=== PATIENT | female | born 1995 | race American Indian/Alaskan Native ===

== ENCOUNTER 2019-05-14 21:48 | Outpatient (CLI) | payer BC, MEDICAID ==
[2019-05-14 23:47] VITALS: BP 129/65
== END 2019-05-14 23:55 | disposition home or self-care (01) ==
LOC: TRG 21:48
PROVIDERS: ATTEND Obstetrics & Gynecology
DX: O47.1 False labor at or after 37 completed weeks of gestation (principal); Z3A.39 39 weeks gestation of pregnancy
CPT/HCPCS: 59025

== ENCOUNTER 2019-05-18 01:41 | Inpatient (IN) | payer BC, MEDICAID ==
[2019-05-18] MEDS ORDERED: XYLOCAINE 2% INFILTRATI ONE (02:13)
[2019-05-18] MEDS ORDERED: BRETHINE IVP PRN (02:13)
[2019-05-18] MEDS ORDERED: MINERAL OIL PO PRN (02:13)
[2019-05-18] MEDS ORDERED: BRETHINE SUB-Q PRN (02:13)
[2019-05-18] MEDS ORDERED: AMPICILLIN/NS 2 GM/100 ML 2 GM/100 ML BAG IV ONE (02:13)
[2019-05-18] MEDS ORDERED: SUBLIMAZE IV PRN (02:13)
[2019-05-18 02:40] LABS: Hemoglobin 12.1 gm/dl (10.1-14.3); Mean Corpuscular HGB Conc 34 % (30-34); Mean Corpuscular Volume 81 fl (79-97); Platelet Count 164 K/mm3 (140-440); Red Blood Count 4.47 M/mm3 (3.65-5.03); Red Cell Distribution Width 16.8 % (13.2-15.2)
[2019-05-18] MEDS ORDERED: PITOCin/NS 20 UNIT/1000ML DRIP 20 UNITS/1,000 ML BAG IV SCH (03:00)
[2019-05-18] MEDS ORDERED: LACTATED RINGERS 1,000 ML IV SCH (03:00)
[2019-05-18] MEDS ORDERED: NARCAN 2 MG/2 ML IV PRN (03:05)
--- NOTE | 2019-05-18 03:06 | Anesthesia Day of Surgery ---
Anesthesia Day of Surgery - Day of Surgery Patient Examined: Yes Patient H&P Reviewed: Yes Patient is NPO: Yes Beta Blockers: No Cardiac Clearance: No Pulmonary Clearance: No Greg's Test: N/A
--- NOTE | 2019-05-18 03:06 | Anesthesia Consultation ---
Anesthesia Consult and Med Hx - Airway Anesthetic Teeth Evaluation: Good ROM Head & Neck: Adequate Mental/Hyoid Distance: Adequate Mallampati Class: Class I Intubation Access Assessment: Good - Pulmonary Exam CTA: Yes - Cardiac Exam Cardiac Exam: RRR - Pre-Operative Health Status ASA Pre-Surgery Classification: ASA2 Proposed Anesthetic Plan: Epidural - Pulmonary Hx Asthma: No COPD: No Hx Pneumonia: No - Cardiovascular System Hx Hypertension: No - Central Nervous System Hx Seizures: No Hx Psychiatric Problems: No - Endocrine Hx Renal Disease: No Hx End Stage Renal Disease: No Hx Hypothyroidism: No Hx Hyperthyroidism: No - Hematic Hx Anemia: Yes (takes iron tid) Hx Sickle Cell Disease: Yes (trait) - Other Systems Hx Alcohol Use: No
--- NOTE | 2019-05-18 03:11 | History and Physical Report ---
History of Present Illness Date of examination: 05/18/19 Date of admission: 05/18/19 02:17 Chief complaint: labor History of present illness: Menstrual History Regularity: regular Menses every: 28 days Duration: 7 LMP: 08/08/2018 LMP reliability: definite LMP character: normal test type: urine test Date: 02/09/2019 BC at conception: BCP Planned ? no EDC Calculations LMP: 05/15/2019 EDC Confirmation: 05/15/2019 Gestational Age: 26 3/7 weeks Past History : 1 Term Births: 0 Premature Births: 0 Living Children: 0 Para: 0 Mult. Births: 0 Prev : 0 Prev. attempt? 0 Aborta: 0 Elect. Ab: 0 Spont. Ab: 0 Ectopics: 0 Past Medical History: Negative Past Medical History Past Surgical History: negative Past Medical History Anesthesia Complications: negative Anemia: negative Autoimmune Disorder: negative Bleeding Disorder: negative Blood Transfusions: negative Breast Disease: negative Diabetes: negative Heart Disease: negative Hypertension: negative Hepatitis/Liver Disease: negative Kidney Disease/UTI: negative Neurologic/Epilepsy/Migraines: negative Phlebitis/Varicosities: negative Psychiatric: negative Pulmonary Disease/Asthma: negative Thyroid Disease: negative Hospitalizations: negative 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 of genital herpes: no Partner hx. of genital herpes: no Rash, Viral, or Febrile illness since last LMP? no Varicella/Chicken Pox Status: Immunized Genetic History Congenital Heart Defect: Mom: no Dad: no Kee Disease: Mom: no Dad: no Thalassemia Mom: no Dad: no Neural Tube Defect Mom: no Dad: no Down's Syndrome Mom: no Dad: no Segundo-Sachs Mom: no Dad: no Sickle Cell Disease/Trait Mom: yes Dad: no Comments: pt's mother Hemophilia Mom: no Dad: no Muscular Dystrophy Mom: no Dad: no Cystic Fibrosis Mom: no Dad: no Mathews Chorea Mom: no Dad: no Mental Retardation Mom: no Dad: no Fragile X Mom: no Dad: no Other Genetic/Chromosomal Disorder Mom: no Dad: no Child w/other defect Mom: no Dad: no Enviromental Exposures Xray Exposure: no Medication, drug, or alcohol use since LMP: no Chemical/Other Exposure: no Exposure to Cat Liter: no Hx of Parvovirus (Fifth Disease): no Occupational Exposure to Children: none Current Allergies: No known allergies Past History Past Medical History: other (see HPI) Past Surgical History: other (see HPI) 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 (see HPI) Family/Genetic History: other (see HPI) Social history: other (see HPI) - Obstetrical History Expected Date of Delivery: 05/15/19 Actual Gestation: 40 Week(s) 3 Day(s) : 1 Para: 0 Medications and Allergies Allergies Allergy/AdvReac Type Severity Reaction Status Date / Time No Known Allergies Allergy Verified 05/14/19 22:08 Home Medications Medication Instructions Recorded Confirmed Last Taken Type Vit-Fe Fumar-FA [ 1 tab PO DAILY 05/14/19 05/18/19 05/17/19 History Vitamin] Ferrous Sulfate [Iron 325 MG] 325 mg PO TID 05/18/19 05/18/19 05/17/19 History Active Meds: Active Medications Ephedrine Sulfate (Ephedrine Sulfate) 10 mg IV Q2M PRN PRN Reason: Hypotension Ephedrine Sulfate (Ephedrine Sulfate) 10 mg IV Q2M PRN PRN Reason: Hypotension Fentanyl (Sublimaze) 100 mcg IV Q2H PRN PRN Reason: Labor Pain Oxytocin/Sodium Chloride (Pitocin/Ns 20 Unit/1000ml Drip) 20 units in 1,000 mls @ 125 mls/hr IV DIRECT CARRIE Lactated Ringer's (Lactated Ringers) 1,000 mls @ 125 mls/hr IV DIRECT CARRIE Last Admin: 05/18/19 02:51 Dose: 125 mls/hr Documented by: Ampicillin Sodium (Ampicillin/Ns 2 Gm/100 Ml) 2 gm in 100 mls @ 100 mls/hr IV ONCE ONE; Protocol Stop: 05/18/19 03:12 Last Admin: 05/18/19 02:50 Dose: 100 mls/hr Documented by: Ampicillin Sodium (Ampicillin/Ns 1 Gm/50 Ml) 1 gm in 50 mls @ 100 mls/hr IV Q4HR CARRIE; Protocol Fentanyl/Bupivacaine/Sodium Chlor (Fentanyl-Bupiv 2 Mcg/Ml-0.125%) 200 mcg in 100 mls @ 12 mls/hr EPIDURAL TITR CARRIE; Protocol Mineral Oil (Mineral Oil) 30 ml PO QHS PRN PRN Reason: Constipation Naloxone HCl (Narcan 2 Mg/2 Ml) 0.2 mg IV Q5M PRN PRN Reason: Respiratory sedation Terbutaline Sulfate (Brethine) 0.25 mg SUB-Q ONCE PRN PRN Reason: Hyperstimulation/Hypertonicity Terbutaline Sulfate (Brethine) 0.25 mg IVP ONCE PRN PRN Reason: Hyperstimulation/Hypertonicity Review of Systems All systems: negative Genitourinary: contractions - Vital Signs Vital signs: Vital Signs Pulse Resp BP 108 H 20 137/79 05/18/19 02:03 05/18/19 02:03 05/18/19 02:03 Temp Pulse Resp BP Pulse Ox 117 H 20 153/70 99 05/18/19 03:04 05/18/19 02:03 05/18/19 03:02 05/18/19 03:04 - Physical Exam Breasts: Positive: normal Cardiovascular: Regular rate, Normal S1, Normal S2 Abdomen: Positive: normal appearance, soft, normal bowel sounds. Negative: distention, tenderness Genitourinary (Female): Positive: normal external genitalia, normal perenium Vulva: both: normal Vagina: Positive: normal moisture. Negative: discharge Cervix: Negative: lesion, discharge Uterus: Positive: normal size, normal contour Adnexa: both: normal Anus/Rectum: Positive: normal perianal skin, heme negative. Negative: rectal mass, hemorrhoids Extremities: Deep Tendon Reflex Grade: Normal +2 - Obstetrical FHR: auscultation normal Results Result Diagrams: 05/18/19 02:25 Abnormal lab results 05/18/19 Range/Units 02:25 MCH 27 L (28-32) pg RDW 16.8 H (13.2-15.2) % All other labs normal. Assessment and Plan 23 y.o. IUP at 40w3d presents for labor, per ms sql d[employer] SVE is 5/90/-1, vertex, BBOW. Admission orders in EMR, pt is GBS +, abx initiated. Patient desires epidural, will start bolus and notify anesthesia. Dr. Camilo aware of admission. Anticipate .
[2019-05-18] MEDS ORDERED: ZOFRAN IV PRN (03:58)
[2019-05-18] MEDS ORDERED: fentaNYL-BUPIV 2 MCG/ML-0.125% 200 MCG/100 ML BAG EPIDURAL SCH (04:00)
[2019-05-18] MEDS ORDERED: PITOCin/NS 30 UNIT/500ML 30 UNITS/500 ML BAG IV SCH (05:00)
[2019-05-18] MEDS ORDERED: AMPICILLIN/NS 1 GM/50 ML 1 GM/50 ML BAG IV SCH (06:14)
--- NOTE | 2019-05-18 07:07 | Progress Note ---
Assessment and Plan Pitocin @ 8mu Ampicillin X 2 given Anticipate delivery. Subjective - Subjective Date of service: 05/18/19 (comfortable with epidural) Patient reports: movement normal, other (pt c/o pressure) Objective - Vital Signs Vital Signs: Vital Signs - 12hr 05/18/19 05/18/19 05/18/19 02:03 02:59 03:02 Pulse Rate 108 H 109 H 100 H Respiratory 20 Rate Blood Pressure 137/79 153/70 Blood Pressure 137/79 [Left] O2 Sat by Pulse 99 Oximetry 05/18/19 05/18/19 05/18/19 03:04 03:08 03:09 Pulse Rate 117 H 110 H 112 H Respiratory Rate Blood Pressure 144/75 Blood Pressure [Left] O2 Sat by Pulse 99 97 Oximetry 05/18/19 05/18/19 05/18/19 03:14 03:18 03:19 Pulse Rate 107 H 83 87 Respiratory Rate Blood Pressure 135/64 Blood Pressure [Left] O2 Sat by Pulse 97 98 Oximetry 05/18/19 05/18/19 05/18/19 03:22 03:24 03:26 Pulse Rate 98 H 98 H 105 H Respiratory Rate Blood Pressure 136/72 128/65 Blood Pressure [Left] O2 Sat by Pulse 100 Oximetry 05/18/19 05/18/19 05/18/19 03:29 03:30 03:34 Pulse Rate 107 H 104 H 106 H Respiratory Rate Blood Pressure 127/63 129/66 Blood Pressure [Left] O2 Sat by Pulse 100 99 Oximetry 05/18/19 05/18/19 05/18/19 03:38 03:39 03:42 Pulse Rate 112 H 102 H 146 H Respiratory Rate Blood Pressure 137/63 135/71 Blood Pressure [Left] O2 Sat by Pulse 99 Oximetry 05/18/19 05/18/19 05/18/19 03:44 03:46 03:49 Pulse Rate 108 H 102 H 118 H Respiratory Rate Blood Pressure 136/72 Blood Pressure [Left] O2 Sat by Pulse 98 99 Oximetry 05/18/19 05/18/19 05/18/19 03:54 03:59 04:04 Pulse Rate 95 H 101 H 100 H Respiratory Rate Blood Pressure Blood Pressure [Left] O2 Sat by Pulse 99 98 99 Oximetry 05/18/19 05/18/19 05/18/19 04:06 04:09 04:14 Pulse Rate 98 H 103 H 79 Respiratory Rate Blood Pressure 136/63 Blood Pressure [Left] O2 Sat by Pulse 100 99 Oximetry 05/18/19 05/18/19 05/18/19 04:19 04:20 04:24 Pulse Rate 102 H 100 H 83 Respiratory Rate Blood Pressure 126/61 Blood Pressure [Left] O2 Sat by Pulse 100 98 Oximetry 05/18/19 05/18/19 05/18/19 04:29 04:34 04:37 Pulse Rate 91 H 101 H 97 H Respiratory Rate Blood Pressure 140/51 Blood Pressure [Left] O2 Sat by Pulse 99 100 89 Oximetry 05/18/19 05/18/19 05/18/19 04:39 04:44 04:49 Pulse Rate 89 98 H 99 H Respiratory Rate Blood Pressure Blood Pressure [Left] O2 Sat by Pulse 98 100 100 Oximetry 05/18/19 05/18/19 05/18/19 04:51 04:54 04:59 Pulse Rate 83 88 92 H Respiratory Rate Blood Pressure 132/62 Blood Pressure [Left] O2 Sat by Pulse 98 100 Oximetry 05/18/19 05/18/19 05/18/19 05:04 05:05 05:06 Pulse Rate 87 94 H 86 Respiratory Rate Blood Pressure 127/65 Blood Pressure [Left] O2 Sat by Pulse 97 94 Oximetry 05/18/19 05/18/19 05/18/19 05:09 05:14 05:19 Pulse Rate 89 87 90 Respiratory Rate Blood Pressure Blood Pressure [Left] O2 Sat by Pulse 100 100 99 Oximetry 05/18/19 05/18/19 05/18/19 05:21 05:24 05:29 Pulse Rate 114 H 99 H 89 Respiratory Rate Blood Pressure 112/81 Blood Pressure [Left] O2 Sat by Pulse 99 100 Oximetry 05/18/19 05/18/19 05/18/19 05:34 05:36 05:39 Pulse Rate 89 107 H 86 Respiratory Rate Blood Pressure 132/75 Blood Pressure [Left] O2 Sat by Pulse 99 100 Oximetry 05/18/19 05/18/19 05/18/19 05:44 05:49 05:50 Pulse Rate 91 H 101 H 105 H Respiratory Rate Blood Pressure 130/96 Blood Pressure [Left] O2 Sat by Pulse 100 100 Oximetry 05/18/19 05/18/19 05/18/19 05:54 05:59 06:04 Pulse Rate 109 H 83 83 Respiratory Rate Blood Pressure Blood Pressure [Left] O2 Sat by Pulse 98 99 98 Oximetry 05/18/19 05/18/19 05/18/19 06:05 06:09 06:14 Pulse Rate 90 84 89 Respiratory Rate Blood Pressure 118/57 Blood Pressure [Left] O2 Sat by Pulse 98 98 Oximetry 05/18/19 05/18/19 05/18/19 06:19 06:23 06:24 Pulse Rate 98 H 114 H 105 H Respiratory Rate Blood Pressure 111/57 Blood Pressure [Left] O2 Sat by Pulse 99 99 Oximetry 05/18/19 05/18/19 05/18/19 06:29 06:34 06:36 Pulse Rate 107 H 109 H 100 H Respiratory Rate Blood Pressure 117/63 Blood Pressure [Left] O2 Sat by Pulse 99 98 Oximetry 05/18/19 05/18/19 05/18/19 06:39 06:44 06:49 Pulse Rate 92 H 115 H 94 H Respiratory Rate Blood Pressure Blood Pressure [Left] O2 Sat by Pulse 99 99 100 Oximetry 05/18/19 05/18/19 05/18/19 06:52 06:54 06:59 Pulse Rate 85 90 105 H Respiratory Rate Blood Pressure 112/56 Blood Pressure [Left] O2 Sat by Pulse 100 100 Oximetry - Exam Breasts: deferred Cardiovascular: Regular rate Lungs: Normal air movement Abdomen: Present: normal appearance, soft. Absent: distention, tenderness Uterus: Present: normal FHR: auscultation normal, category 1 Uterine Contraction Monitor Mode: External Cervical Dilatation: 9.5 (thich meconium) Cervical Effacement Percentage: 100 (NICU aware) station: +1 Uterine Contraction Pattern: Regular Uterine Contraction Intensity: Moderate Extremities: edema Deep Tendon Reflex Grade: Normal +2 - Labs Labs: Abnormal Labs 05/18/19 02:25 MCH 27 L RDW 16.8 H Laboratory Results - last 24 hr 05/18/19 05/18/19 02:25 02:25 WBC 9.7 RBC 4.47 Hgb 12.1 Hct 36.0 MCV 81 MCH 27 L MCHC 34 RDW 16.8 H Plt Count 164 Blood Type A POSITIVE Antibody Screen Negative
[2019-05-18] MEDS ORDERED: METHERGINE IM ONE ×2 (09:10→09:11)
[2019-05-18] MEDS: METHERGINE PO SCH ×3 (09:13→21:47)
[2019-05-18] MEDS ORDERED: CYTOTEC ONE (09:17)
[2019-05-18] MEDS ORDERED: CYTOTEC PR STA (09:23)
[2019-05-18] MEDS ORDERED: MILK OF MAGNESIA PO PRN (11:37)
[2019-05-18] MEDS ORDERED: DULCOLAX PR PRN (11:37)
[2019-05-18] MEDS ORDERED: BENADRYL PO PRN (11:37)
[2019-05-18] MEDS ORDERED: LANSINOH TP PRN (11:37)
[2019-05-18] MEDS ORDERED: NORCO 5/325 PO PRN (11:37)
[2019-05-18] MEDS ORDERED: PHENERGAN PO PRN (11:37)
[2019-05-18] MEDS ORDERED: TUCKS PAD TP PRN (11:37)
[2019-05-18] MEDS ORDERED: TYLENOL PO PRN (11:37)
--- NOTE | 2019-05-18 11:45 | Procedure Note ---
OB Delivery Note - Delivery Date of Delivery: 05/18/19 Retail Sales Associate Seasonal: LIDIA JURADO Estimated blood loss: other (800cc) - Vaginal Delivery presentation: vertex Delivery position: OP Intrapartum events: meconium, mult.variable deceleratio Delivery augmentation: pitocin Delivery monitor: external FHT, external uterine Route of delivery: Delivery placenta: manual Delivery cord: 3 umbilical vessels Episiotomy: midline Delivery laceration: 2nd degree Delivery repair: vicryl Anesthesia: epidural Delivery comments: NICU and RT present for delivery d/t meconium Prolong 2nd stage >1 hr due to OP presentation. live born male over 2nd degree episiotomy. Baby on mom's abdomen, cord clamped and cut Baby cried as he was passed to warmer. Cord blood obtained, umbilical cord evulsed, end grasp with ring forceps, placenta manually removed, complete and intact. Sent to pathology. uterine atony despite massage, several lg clots removed. Methergine IM. Straight cath 100cc. Bleeding continues. Cytotec 800mcg MA placed. Laceration repaired with 2-0 vicryl. 8/9, EBL 800cc, Wgt 9-3. Mom and baby remain LDR stable. FF @ umb Lochia mod w/o clots. made aware. - A at 1 minute: 8 at 5 minutes: 9 Gender: Male (wgt 9-3)
[2019-05-18] MEDS ORDERED: SODIUM CHLORIDE FLUSH SYRINGE 10 ML IV NR (12:00)
[2019-05-18] MEDS: IBUPROFEN PO SCH ×3 (13:09→23:37)
[2019-05-19 01:23] LABS: Hematocrit 34.2 % (30.3-42.9); Hemoglobin 11.2 gm/dl (10.1-14.3)
[2019-05-19] MEDS: METHERGINE PO SCH ×2 (05:52→19:25)
[2019-05-19] MEDS: IBUPROFEN PO SCH ×2 (05:53→17:28)
--- NOTE | 2019-05-19 07:31 | Discharge Summary ---
Providers - Providers Date of Admission: 05/18/19 02:17 Date of discharge: 05/19/19 (desires d/c home) Attending physician: AKBAR HEREDIA Primary care physician: AKBAR HEREDIA Hospitalization Reason for admission: Labor Condition: Good Pertinent studies: post delivery H&H 11.2/34.2 Procedures: Hospital course: uncomplicated and course Disposition: DC-01 TO HOME OR SELFCARE - Discharge Diagnoses (1) Spontaneous vaginal delivery Status: Acute Core Measure Documentation - Palliative Care Palliative Care/ Comfort Measures: Not Applicable - Core Measures Any of the following diagnoses?: none Exam - Constitutional Vitals: Temp Pulse Resp BP Pulse Ox 98.0 F 79 20 116/69 99 05/19/19 00:53 05/19/19 00:53 05/19/19 05:53 05/19/19 00:53 05/19/19 00:53 General appearance: Present: no acute distress, well-nourished - EENT Eyes: Present: PERRL ENT: hearing intact, clear oral mucosa - Neck Neck: Present: supple, normal ROM - Respiratory Respiratory effort: normal Respiratory: bilateral: CTA - Cardiovascular Heart Sounds: Present: S1 & S2. Absent: rub, click - Extremities Extremities: pulses symmetrical, No edema Peripheral Pulses: within normal limits - Abdominal General gastrointestinal: Present: soft, non-tender, non-distended, normal bowel sounds Female genitourinary: Present: normal - Integumentary Integumentary: Present: clear, warm, dry - Musculoskeletal Musculoskeletal: gait normal, strength equal bilaterally - Psychiatric Psychiatric: appropriate mood/affect, intact judgment & insight - Neurologic Neurologic: CNII-XII intact, moves all extremities - Additional findings Additional findings: fundus firm, lochia scant, bottle feeding Plan Activity: no restrictions Diet: regular Follow up with: AKBAR HEREDIA MD [Primary Care Provider] - 06/18/19 (Congratulations!! Please call [phone] to schedule your visit in 4 weeks. Call for any questions or concerns)
[2019-05-19 18:36] VITALS: BP 118/64
== END 2019-05-19 09:40 | disposition home or self-care (01) | DRG 775 ==
LOC: TRG 01:41 → LD 02:17 → OB 11:20
PROVIDERS: ADMIT Obstetrics & Gynecology; ATTEND Obstetrics & Gynecology
PROC: 10E0XZZ Delivery of Products of Conception, External Approach (ICD-10-PCS; principal; 2019-05-18)
PROC: 0KQM0ZZ Repair Perineum Muscle, Open Approach (ICD-10-PCS; 2019-05-18)
PROC: 0W8NXZZ Division of Female Perineum, External Approach (ICD-10-PCS; 2019-05-18)
PROC: 3E0R3BZ Introduction of Anesthetic Agent into Spinal Canal, Percutaneous Approach (ICD-10-PCS; 2019-05-18)
PROC: 00HU33Z Insertion of Infusion Device into Spinal Canal, Percutaneous Approach (ICD-10-PCS; 2019-05-18)
DX: O99.824 Streptococcus B carrier state complicating childbirth (principal); Z3A.40 40 weeks gestation of pregnancy; Z37.0 Single live birth; O77.0 Labor and delivery complicated by meconium in amniotic fluid; O76 Abnormality in fetal heart rate and rhythm complicating labor and delivery; O70.1 Second degree perineal laceration during delivery
CPT/HCPCS: 36415; 85014; 85018; 85027; 86592; 86850; 86900; 86901; 88307; 88312; 88341; 88342; G0378; J0290; J2210; J2590; J7120